=== PATIENT | female | born 1995 | race Caucasian/White ===

== ENCOUNTER → 2023-01-24 15:59 | Outpatient (CLI) | payer OTHER, SELFPAY ==
--- NOTE | 2023-01-24 16:01 | DI.US.S_ITS ---
PROCEDURE: US OB <= 14 WEEKS FETUS INDICATIONS: DATES OUTSIDE/PRIOR DATING DATA: Last menstrual period (LMP): 11/07/2022. LMP-based estimated date of delivery (NEVAEH): 08/14/2023. First dating scan (date and location): 01/24/2023. Estimated date of delivery (NEVAEH) from first dating scan: 08/12/2023. TECHNIQUE: Real-time scanning was performed of the fetus and maternal pelvic organs, with image documentation. Endovaginal scanning was also performed to better visualize the fetus and maternal ovaries. COMPARISON: None. FINDINGS: Embryo: Bylas-rump length 4.7 cm corresponds with an 11 week 3 day gestation. Heart rate: 168 beats per minute Maternal organs: Ovaries unremarkable. IMPRESSION: Single live intrauterine corresponds with an 11 week 3 day gestation. Approved by: Darnell Fregoso M.D. on 01/24/2023 at 18:38
== END ==
PROVIDERS: PCP Student in an Organized Health Care Education/Training Program; Referring Provider Family Medicine; Visit Provider Family Medicine
DX: Z34.01 Encounter for supervision of normal first pregnancy, first trimester (principal); Z3A.11 11 weeks gestation of pregnancy
CPT/HCPCS: 76801; 76817

== ENCOUNTER → 2023-02-10 10:24 | Outpatient (CLI) | payer OTHER, SELFPAY ==
[2023-02-10 10:49] LABS: Specimen Label NATERA TEST KIT.
[2023-02-10 11:41] LABS: Appearance Urine UA CLEAR; Bilirubin Urine UA NEGATIVE (NEGATIVE); Color Urine UA YELLOW; Glucose Urine UA NEGATIVE (Negative); Ketones Urine UA NEGATIVE (NEGATIVE); Leukocyte Esterase Urine UA NEGATIVE (NEGATIVE); Nitrite Urine UA NEGATIVE (Negative); Occult Blood Urine UA NEGATIVE (Negative); Protein Urine UA NEGATIVE (Negative); Urobilinogen Urine UA 0.2 E.U./dL (0.2)
[2023-02-10 11:50] LABS: Add Manual Diff / Slide Review NO; Basophils Absolute Auto 0 /uL (0-100); Basophils Percent Auto 0.3 % (0-2); Eosinophils Absolute Auto 100 /uL (0-450); Eosinophils Percent Auto 1.8 % (2-4); Hematocrit 38.6 % (36-46); Hemoglobin 13.5 g/dL (12.0-16.0); Lymphocytes Absolute Auto 1200 /uL (1100-4500); Lymphocytes Percent Auto 16.8 % (25-40); Mean Corpuscular HGB Conc 34.9 % (30-36); Mean Corpuscular Hemoglobin 29.5 PG (26-34); Mean Corpuscular Volume 84.4 fL (80-100); Monocytes Absolute Auto 400 /uL (0-900); Monocytes Percent Auto 6.2 % (3-14); Neutrophils Absolute Auto 5400 /uL (1500-7000); Neutrophils Percent Auto 74.9 % (50-75); Platelet Count 204 X10^3/uL (150-400); Red Blood Cell Count 4.58 X10^6/uL (4.0-5.2); White Blood Cell Count 7.1 X10^3/uL (4.5-11.0)
[2023-02-10 11:58] LABS: pH Urine UA 6.5 (4.5-8.0)
[2023-02-10 16:19] LABS: HIV 1 & 2 Ab/Ag 4th Gen Combo NEGATIVE (NEGATIVE); Hep C Virus Ab w/Reflex Quant NEGATIVE s/c (NEGATIVE); Hepatitis B Surface Antigen NEGATIVE s/c (NEGATIVE); Rubella Antibody IgG 25.9 IU/mL (>15)
[2023-02-11 07:12] LABS: RPR Screen Non Reactive (Non Reactive)
[2023-02-11 09:42] LABS: Varicella IgG Antibody 490 index (Immune >165)
== END ==
PROVIDERS: PCP Student in an Organized Health Care Education/Training Program; Referring Provider Student in an Organized Health Care Education/Training Program; Visit Provider Student in an Organized Health Care Education/Training Program
DX: Z34.01 Encounter for supervision of normal first pregnancy, first trimester (principal)
CPT/HCPCS: 36415; 80055; 81003; 86787; 86803; 86850; 86900; 86901; 87077; 87086; 87186; 87389

== ENCOUNTER → 2023-07-22 11:24 | Outpatient (CLI) | payer OTHER, SELFPAY ==
[2023-07-22 12:59] LABS: Add Manual Diff / Slide Review NO; Basophils Absolute Auto 0 /uL (0-100); Basophils Percent Auto 0.5 % (0-2); Eosinophils Absolute Auto 100 /uL (0-450); Eosinophils Percent Auto 1.9 % (2-4); Hematocrit 38.5 % (36-46); Hemoglobin 13.3 g/dL (12.0-16.0); Lymphocytes Absolute Auto 900 /uL (1100-4500); Lymphocytes Percent Auto 12.3 % (25-40); Mean Corpuscular HGB Conc 34.5 % (30-36); Mean Corpuscular Hemoglobin 29.5 PG (26-34); Mean Corpuscular Volume 85.5 fL (80-100); Monocytes Absolute Auto 600 /uL (0-900); Monocytes Percent Auto 7.7 % (3-14); Neutrophils Absolute Auto 5600 /uL (1500-7000); Neutrophils Percent Auto 77.6 % (50-75); Platelet Count 182 X10^3/uL (150-400); Red Blood Cell Count 4.51 X10^6/uL (4.0-5.2); Red Cell Distribution Width 14.8 % (11.6-14.8); White Blood Cell Count 7.2 X10^3/uL (4.5-11.0)
[2023-07-22 13:30] LABS: Alanine Aminotransferase 27 IU/L (<35); Albumin 3.7 g/dL (3.5-5.0); Albumin Globulin Ratio 1.2 (1.0-2.8); Alkaline Phosphatase 206 U/L (38-126); Aspartate Aminotransferase 25 IU/L (14-36); BUN Creatinine Ratio 21.3 (6-22); Bilirubin Total 0.5 mg/dL (0.2-1.3); Blood Urea Nitrogen 13 mg/dL (7-17); Calcium 9.3 mg/dL (8.4-10.2); Carbon Dioxide 20 mmol/L (22-32); Chloride 110 mmol/L (98-107); Estimated Glomerular Filt Rate > 60 mL/min (>60); Globulin 3.2 g/dL (1.7-4.1); Glucose 80 mg/dL (70-100); HEMOLYSIS < 15 (0-50); Sodium 136 mmol/L (137-145); Total Protein 6.9 g/dL (6.3-8.2)
[2023-07-22 14:06] LABS: Creatinine Urine Random 89.2 mg/dL; Protein (Total) Urine Random 11 mg/dL (0-12); Protein Creatinine Ratio Urine 0.12 GRAM/24H
[2023-07-23 16:19] LABS: Strep Grp B PCR NEG for Grp B Strep
== END ==
PROVIDERS: PCP Family Medicine; Referring Provider Family Medicine; Visit Provider Family Medicine
DX: Z34.01 Encounter for supervision of normal first pregnancy, first trimester (principal); R03.0 Elevated blood-pressure reading, without diagnosis of hypertension
CPT/HCPCS: 36415; 80053; 82570; 84156; 85025; 87653

== ENCOUNTER 2023-07-24 15:49 | Observation (INO) | payer OTHER, SELFPAY ==
[2023-07-24 16:50] LABS: Creatinine Urine Random 34.6 mg/dL; Protein (Total) Urine Random 15 mg/dL (0-12); Protein Creatinine Ratio Urine 0.43 GRAM/24H
[2023-07-24 17:03] LABS: Uric Acid 5.9 mg/dL (2.5-6.2)
[2023-07-24 17:05] LABS: Alanine Aminotransferase 27 IU/L (<35); Albumin 3.6 g/dL (3.5-5.0); Albumin Globulin Ratio 1.1 (1.0-2.8); Alkaline Phosphatase 210 U/L (38-126); Aspartate Aminotransferase 27 IU/L (14-36); BUN Creatinine Ratio 19.3 (6-22); Bilirubin Total 0.5 mg/dL (0.2-1.3); Blood Urea Nitrogen 11 mg/dL (7-17); Carbon Dioxide 18 mmol/L (22-32); Chloride 112 mmol/L (98-107); Estimated Glomerular Filt Rate > 60 mL/min (>60); Globulin 3.2 g/dL (1.7-4.1); Glucose 90 mg/dL (70-100); HEMOLYSIS < 15 (0-50); Sodium 136 mmol/L (137-145); Total Protein 6.8 g/dL (6.3-8.2)
[2023-07-24] MEDS: LACTATED RINGERS 1,000 ML 500 ML IV (17:15)
[2023-07-24 17:20] LABS: Add Manual Diff / Slide Review NO; Basophils Absolute Auto 0 /uL (0-100); Basophils Percent Auto 0.3 % (0-2); Eosinophils Absolute Auto 100 /uL (0-450); Eosinophils Percent Auto 1.3 % (2-4); Hematocrit 37.7 % (36-46); Hemoglobin 13.1 g/dL (12.0-16.0); Lymphocytes Absolute Auto 1100 /uL (1100-4500); Lymphocytes Percent Auto 13.3 % (25-40); Mean Corpuscular HGB Conc 34.7 % (30-36); Mean Corpuscular Volume 83.7 fL (80-100); Monocytes Absolute Auto 800 /uL (0-900); Neutrophils Absolute Auto 6400 /uL (1500-7000); Neutrophils Percent Auto 76.1 % (50-75); Platelet Count 189 X10^3/uL (150-400); Red Cell Distribution Width 14.5 % (11.6-14.8); White Blood Cell Count 8.4 X10^3/uL (4.5-11.0)
[2023-07-24] MEDS: ACETAMINOPHEN 325 MG TABLET 650 MG PO (18:28)
--- NOTE | 2023-07-24 20:50 | P.HPOB_ITS ---
OB HPI Date/Time Date of admission: 07/24/23 Date Patient Seen: 07/24/23 Time Patient Seen: 19:50 History of Present Condition Chief complaint: HBP, swelling in feet and ankles : 1 Para: 0 Estimated Date of Delivery: 08/14/23 Estimated Gestational Age (weeks): 37w0d Narrative: Mary Calles is a 27 year old at 37wks GA who presents for leg swelling, high BPs and RUQ pain. She noticed leg swelling yesterday. She started checking blood pressures and had highest BP at home of 149/98. She was averaging in the high 130s systolic. SHe also noticed some tightening in her abdomen. Per RN on arrival, contractions were palpable and occuring every 2-8 minutes. After a 500cc IVF bolus, contractions had spaced out to q6-8 minutes. She was given Tylenol and RUQ pain resolved. has been complicated by GDMA1, well controlled with fasting sugars in the 70-80 range and 2hr PP generally in 100-120 with occasional 130s. Infant is currently breech, persistent from last US 2 days ago. Pt had a planned ECV for this week Indications Other reason(s) for admission: observation for 24 hour urine protein due to elevated BP and elevated Urine PC History of Present care: good care Dating criteria: LMP confirmed by 1st trimester US Ultrasounds: normal 1st trimester US and normal mid trimester US Obstetrical complications: gestational diabetes (GDMA1, well controlled ) and preeclampsia Preadmission Labs Blood type: A (+) positive -: Antibody screen: negative, GBS status: negative, HBsAG: negative, HIV: negative, HSV 1: negative, HSV 2: negative and RPR/VDLR: negative -: Rubella: immune and Varicella: immune HCT: 13.1 HCAB: negative Cell-free DNA: normal cfDNA, female 1 hr GTT: 200 3 hr GTT: 3 hr Fasting blood glucose: 90 Prior (ies) History: Evaluation Evaluation Baseline heart rate: 130 Variability: Moderate (11-25) monitor accelerations: Present Monitor Decelerations: Absent Contraction Frequency (minutes): 8 Uterine Contraction Intensity: Moderate Category of Tracing: Reactive Status: Category l Dilation (cm): 1 Effacement (%): 40 Dilation: 1-2 cm Effacement: 40-50% station: -3 Position of cervix: mid Consistency: soft Moser score: 5 PFSH Surgical History History of appendectomy History of cholecystectomy [place] teeth extracted Family History Mother Hypertension Father Hypertension Grandfather Pancreatic cancer Social History marital status: number of children: 0 household members: spouse lives independently: Yes caregiver/support person: No housing: condominium pets and animals: Yes (2 cats, managing litter boxes) education level: college (bachelor's degree) occupational status: employed (works from home) current occupational exposures/hazards: No special vaibhav needs: No travel history: recent (Domestic only) seatbelt use: always water heater temp set < 120 deg: Yes working smoke detector in home: Yes fire extinguisher in home: Yes carbon monox detector in home: Yes firearms in home: Yes firearms unloaded and locked: Yes do you feel safe at home: Yes Smoking Status: Never smoker second hand exposure: No alcohol intake: former (~3/week when not ) substance use type: does not use during the past year weight has: remained stable well-balanced diet: about half the time daily servings fruits/ve-4 caffeine: Yes (1 cup coffee in AM) Type(s) of exercise: walking and weight lifting frequency: 5-6 times per week Meds Home Medications and Allergies Home Medications Medication Instructions Recorded Confirmed Type vitamin-ferrous sulfate tab PO 01/20/23 07/22/23 History 27 mg iron-folic acid 0.8 mg tablet famotidine 20 mg tablet (Pepcid) 20 mg PO DAILY #60 tabs 03/11/23 07/22/23 Rx ondansetron 4 mg disintegrating 4 mg PO Q8H PRN nausea and 03/11/23 07/22/23 Rx tablet vomiting #30 tabs buspirone 5 mg tablet 5 mg PO BID #60 tabs 07/22/23 07/22/23 Rx lidocaine 5 % topical cream 1 applic topical BID PRN pain #15 07/22/23 07/22/23 Rx (Hemorrhoidal Relief) grams Allergies Allergy/AdvReac Type Severity Reaction Status Date / Time No Known Drug Allergies Allergy Verified 07/22/23 10:34 Review of Systems Review of Systems Narrative: Denies vision changes Denies YATES Endorsees RUQ pain, improved with tylenol tx Endorses uterine contractions OB Exam Vital signs Blood Pressure: 124/83 Pulse Rate: 78 HENMT Head: normocephalic Mouth: oral mucosae normal Resp Effort & Inspection: normal respiratory effort Extremities Lower extremity: Yes edema External Female Exam: Yes normal external appearance Objective Imaging US - abdomen: My impression: heart rate visualized, ~130BPM. Movement visualized. head at RUQ, curved medially, spine up. Placenta anterior/fundal Labs 07/24/23 16:30 07/24/23 16:30 Labs: Laboratory Results - last 24 hr 07/24/23 07/24/23 16:10 16:30 WBC 8.4 RBC 4.50 Hgb 13.1 Hct 37.7 MCV 83.7 MCH 29.0 MCHC 34.7 RDW 14.5 Plt Count 189 Neut % (Auto) 76.1 H Lymph % (Auto) 13.3 L [place] % (Auto) 9.0 Eos % (Auto) 1.3 L Baso % (Auto) 0.3 Neut # (Auto) 6400 Lymph # (Auto) 1100 [place] # (Auto) 800 Eos # (Auto) 100 Baso # (Auto) 0 Sodium 136 L Potassium 4.0 Chloride 112 H Carbon Dioxide 18 L BUN 11 Creatinine 0.57 Estimated GFR > 60 BUN/Creatinine Ratio 19.3 Glucose 90 Uric Acid 5.9 Calcium 9.0 Total Bilirubin 0.5 AST 27 ALT 27 Alkaline Phosphatase 210 H Total Protein 6.8 Albumin 3.6 Globulin 3.2 Albumin/Globulin Ratio 1.1 U Random Total Protein 15 H Urine Creatinine 34.6 Protein/Creatinin Ratio 0.43 Blood Type A Positive Antibody Screen Negative Assessment and Plan Assessment and Plan Assessment and Plan narrative: 27 yo at 37w GA by 1st trimester US with pregnacy complicated by GDMA1 + breech presentation presenting for leg swelling and elevated BPS at home. On arrival, CMP is normal wtih nml LFTs, and normal Cr. CBC shows normal plts. Urine PC is 0.43 up from 0.12 two days ago in clinic. At at that visit BP was elevated to 130s but resolved after sitting for 15 minutes down to systolic of 120. The remainder of PRe-E labs were normal at that time as well 1. Elevated urine PC ratio: Concern for Pre-E. Urine PC increased PC from two days ago. BPs elevated at home but 120-130s/80s in triage. all other labs nml. No severe features now, RUQ pain resolved with tylenol and LFTs normal. Will admit to observation for 24 hour urine Protein collection and monitoring - admit to obs - 24 hours protein - trend BPs, IV labetolol for any severe range BPs - Delivery planning pending 24 hours urine and overnight BPs as well as ECV as below 2. Breech presentation: breech confirmed again today on bedside US. Wasplanned for ECV in 3 days, will move forward to tomorrow AM when OR staff present and OR available - Fentanyl + terb for ECV - NPO at midnight - Alert OR scheduling first this in the AM to ensure scheduling availability of OR if needed - Repeat US prior to ECV - plan for 1 hr monitoring prior to ECV attempt 3. GDMA1: delivery previously planned for 39.0-39.6, delivery now TBD based on BP. - glucose checks fasting and 2hr PP
[2023-07-24 21:05] VITALS: BP 138/92
[2023-07-24 21:29] VITALS: BP 124/83; PULSE 78
[2023-07-24] MEDS: ZOLPIDEM 5 MG TABLET 10 MG PO (22:05)
[2023-07-25] MEDS: CALCIUM CARBONATE 500 MG TAB PO (02:38)
[2023-07-25] MEDS: FAMOTIDINE 20 MG/2 ML VIAL IV (03:55)
[2023-07-25] MEDS: ONDANSETRON 4 MG/2 ML INJ IV (07:20)
[2023-07-25] MEDS: TERBUTALINE 1 MG/ML VIAL 0.25 MG SUBCUT (07:20)
[2023-07-25] MEDS: fentaNYL 100 MCG/2 ML INJ IV (07:23)
[2023-07-25] MEDS: LACTATED RINGERS 1,000 ML 500 ML IV (07:42)
--- NOTE | 2023-07-25 08:35 | PM.PROC.1 ---
Procedures Date/Time Date of procedure: 07/25/23 Time of procedure: 07:20 General Procedure description: Surgeon:?Terri Financial Sales Representative(s): Roxie PreOp Dx:?Breech presentation PostOp Dx:?breech presentation, unsuccessful version Operation:?External Cephalic Version Findings:?Stable HR pre and post procedure, baseline 130s, +accels, - decels Clinical Note:? a 27 year old at 37w1d who presented to L&D for leg swelling and was observed overnight. Her past medical history is insignificant. Her current has been complicated by GDMA1 and persistent breech presentation. Due to admssion for observation, ECV was attempted today. [] Today she is currently 35 weeks and 3 days gestational age. A reactive heart tracing was obtained prior to moving her to the ultrasound suite for the procedure. Risks of ECV, including abnormal FHR, PROM, abruption, injury to fetus, possible emergency C/S, and failed ECV were discussed with the patient. Procedure Note:?A bedside ultrasound was performed which confirmed the single intrauterine and a complete footling breech presentation. There was noted to be adequate fluid (MVP 7.62cm). NST was reactive and Cat 1. The pelvis was located in the maternal lower pelvis, spine along the materal left side, and head in the maternal RUQ. Using manual pressure, the fetus was manipulated with gentle pressure from the palms against the buttock and posterior occupit to stimulate a forward roll. In total, 3 attempts where made. HRs were obtained between each attempt and were reassuring, between 130-140 after each attempt. Following the procedure, she was noted to have a reassuring and reactive tracing for 1 hour post procedure. She did not have any regular contractions and there were no signs of PROM. She was discharged home with instructions on reasons to return to L&D. She is scheduled to f/up tomorrow on LD for NST. Complications: none
--- NOTE | 2023-07-25 18:20 | PM.DS.1 ---
History of Present Illness History of Present Illness Date Patient Seen: 07/25/23 Time Patient Seen: 07:45 Date of Onset of Symptoms: 07/16/23 Chief complaint: HBP, swelling in feet and ankles Discharge Providers Provider Date of admission: 07/24/23 15:49 Discharge Date: 07/25/23 Primary care physician: Paula Murray MD Discharge provider: Paula Murray MD Summary Hospital Course Hospital Course: 27-year-old at 37w0d presenting with leg swelling and elevated blood pressures into the 140 range systolics at home. She on arrival was found to have normal blood pressures but due to elevated pressures at home, preeclampsia workup was initiated which showed increase of urine protein to creatinine ratio from 0.1 -->0.43. She remained inpatient for observation overnight to ensure that blood pressures did not worsen and for monitoring. In the morning due to breech presentation, ECV was attempted. ECV was unsuccessful, see procedure note for details. After the procedure, she was monitored for 1 hour with category 1 reassuring strip. She was discharged home with plan to follow-up tomorrow for NST and blood pressure check. She will be seen in clinic on Tuesday for blood pressure check and visit. She will seen on for NST. She was seen on Tuesday for blood pressure check in clinic as well. Status at Discharge Cognitive/behavioral status at discharge: oriented Functional status at discharge: independent ambulation Overall status at discharge: patient is back to baseline Time Spent with Patient Time spent: Greater than 30 minutes Exam Narrative Exam Narrative: GEN: Healthy appearing, well-developed, NAD. PSYCH: Good Judgment. AOx3. Normal memory, mood, and affect HEENT: -Head: NC/AT -Eyes: No discharge or redness CV: warm and well perfused LUNGS: breathing comfortably on RA SKIN: Warm, well perfused. No skin rashes or abnormal lesions ABD: Gravid NEURO: Ambulating with no limitations. No focal deficits Objective Labs 07/24/23 16:30 07/24/23 16:30 COUNTS INCLUDE 234 BEDS AT THE [facility] Surgical History History of appendectomy History of cholecystectomy [place] teeth extracted Family History Mother Hypertension Father Hypertension Grandfather Pancreatic cancer Social History marital status: number of children: 0 household members: spouse lives independently: Yes caregiver/support person: No housing: condominium pets and animals: Yes (2 cats, managing litter boxes) education level: college (bachelor's degree) occupational status: employed (works from home) current occupational exposures/hazards: No special vaibhav needs: No travel history: recent (Domestic only) seatbelt use: always water heater temp set < 120 deg: Yes working smoke detector in home: Yes fire extinguisher in home: Yes carbon monox detector in home: Yes firearms in home: Yes firearms unloaded and locked: Yes do you feel safe at home: Yes Smoking Status: Never smoker second hand exposure: No alcohol intake: former (~3/week when not ) substance use type: does not use during the past year weight has: remained stable well-balanced diet: about half the time daily servings fruits/ve-4 caffeine: Yes (1 cup coffee in AM) Type(s) of exercise: walking and weight lifting frequency: 5-6 times per week Discharge Assessment & Plan Assessment and Plan Assessment: 27-year-old at 37 weeks 1 day today discharged after an overnight admission due to blood pressure elevation at home and increase in urine protein creatinine ratio. Blood pressures remained stable during her admission. ECV was attempted and was not successful. She will we monitored for blood pressure elevation mostly over the next few days and we will plan for accordingly. If she does not progress to full preeclampsia with elevated blood pressures, we will plan for at 39 weeks for GDM A1 1. Breech presentation-attempted ECV, unsuccessful. Plan for primary as delivery method 2. Elevated urine protein creatinine ratio in the absence of recorded blood pressure elevation: Blood pressures do appear to be up trending but have not reached a treatment threshold and are not yet above 140 measured in clinic or on labor and delivery. We will continue to watch blood pressures closely. -follow-up daily for blood pressure check, NST every other day, clinic visits on in between days 3. GDM A1: Diet controlled. Continue to check fasting and 2 hour postprandial sugars 4. Anxiety: Continue home BuSpar Discharge Plan Discharge Plan Patient Disposition: Home Discharge orders & Medications Prescriptions: Continued famotidine [Pepcid] 20 mg tablet 20 mg PO DAILY Qty: 60 3RF ondansetron 4 mg tablet,disintegrating 4 mg PO Q8H PRN (Reason: nausea and vomiting) Qty: 30 0RF lidocaine [Hemorrhoidal Relief] 5 % cream 1 applic topical BID PRN (Reason: pain) Qty: 15 0RF buspirone 5 mg tablet 5 mg PO BID Qty: 60 0RF vit-ferrous sulfat-FA 27 mg iron- 0.8 mg tablet PO Follow up/Referrals: Paula Murray MD [Primary Care Provider] - Visit Report/Discharge Packet Stand Alone Forms: Patient Portal/API, Stroke Signs & Symptoms Discharge Data Primary Care Provider: Paula Murray Attending Provider: Jacoby Merlos Admit Date/Time: 07/24/23 15:49 Discharges patient from system. Discharge Date/Time: 07/25/23 08:47
[2023-07-25 21:48] LABS: Collection Time Urine 24 Hours; Protein (Total) Urine Random 11 mg/dL (0-12); Total Protein 24 Hour Urine 212 mg/day (42-225); Total Volume Urine 1925 mL
== END 2023-07-25 08:47 | disposition home or self-care (01) ==
PROVIDERS: Admitting Provider Obstetrics & Gynecology; PCP Family Medicine; Referring Provider Obstetrics & Gynecology; Visit Provider Obstetrics & Gynecology
DX: O32.1XX0 Maternal care for breech presentation, not applicable or unspecified (principal); O24.410 Gestational diabetes mellitus in pregnancy, diet controlled; O99.343 Other mental disorders complicating pregnancy, third trimester; F41.9 Anxiety disorder, unspecified; O12.13 Gestational proteinuria, third trimester; Z3A.37 37 weeks gestation of pregnancy; O26.893 Other specified pregnancy related conditions, third trimester; R11.2 Nausea with vomiting, unspecified; R10.13 Epigastric pain; R51.9 Headache, unspecified; O24.419 Gestational diabetes mellitus in pregnancy, unspecified control; O13.3 Gestational [pregnancy-induced] hypertension without significant proteinuria, third trimester
CPT/HCPCS: 36415; 59025; 59050; 59412; 76815; 80053; 82570; 84156; 84550; 85025; 86850; 86900; 86901; 96360; 96372; G0378; G0379; J2405; J3010

== ENCOUNTER 2023-07-25 20:00 | Observation (INO) | payer OTHER, SELFPAY ==
[2023-07-25 21:02] LABS: Add Manual Diff / Slide Review NO; Basophils Absolute Auto 0 /uL (0-100); Basophils Percent Auto 0.5 % (0-2); Eosinophils Absolute Auto 0 /uL (0-450); Eosinophils Percent Auto 0.1 % (2-4); Hematocrit 36.1 % (36-46); Hemoglobin 12.5 g/dL (12.0-16.0); Lymphocytes Absolute Auto 1000 /uL (1100-4500); Lymphocytes Percent Auto 11.2 % (25-40); Mean Corpuscular HGB Conc 34.5 % (30-36); Mean Corpuscular Hemoglobin 28.8 PG (26-34); Mean Corpuscular Volume 83.4 fL (80-100); Monocytes Absolute Auto 800 /uL (0-900); Monocytes Percent Auto 8.9 % (3-14); Neutrophils Absolute Auto 6900 /uL (1500-7000); Neutrophils Percent Auto 79.3 % (50-75); Platelet Count 181 X10^3/uL (150-400); Red Blood Cell Count 4.33 X10^6/uL (4.0-5.2); Red Cell Distribution Width 14.3 % (11.6-14.8); White Blood Cell Count 8.7 X10^3/uL (4.5-11.0)
[2023-07-25 21:07] LABS: Alanine Aminotransferase 26 IU/L (<35); Albumin 3.5 g/dL (3.5-5.0); Albumin Globulin Ratio 1.1 (1.0-2.8); Alkaline Phosphatase 210 U/L (38-126); Aspartate Aminotransferase 26 IU/L (14-36); BUN Creatinine Ratio 18.5 (6-22); Bilirubin Total 0.6 mg/dL (0.2-1.3); Blood Urea Nitrogen 10 mg/dL (7-17); Calcium 9.7 mg/dL (8.4-10.2); Carbon Dioxide 22 mmol/L (22-32); Chloride 109 mmol/L (98-107); Estimated Glomerular Filt Rate > 60 mL/min (>60); Globulin 3.1 g/dL (1.7-4.1); Glucose 92 mg/dL (70-100); HEMOLYSIS < 15 (0-50); Potassium 4.1 mmol/L (3.4-5.1); Sodium 136 mmol/L (137-145); Total Protein 6.6 g/dL (6.3-8.2)
[2023-07-25] MEDS: ONDANSETRON 4 MG ODT SL (21:47)
== END 2023-07-25 22:15 | disposition home or self-care (01) ==
PROVIDERS: Admitting Provider Family Medicine; PCP Family Medicine; Referring Provider Family Medicine; Visit Provider Family Medicine
DX: O26.893 Other specified pregnancy related conditions, third trimester (principal); R11.2 Nausea with vomiting, unspecified; R10.13 Epigastric pain; R51.9 Headache, unspecified; O24.419 Gestational diabetes mellitus in pregnancy, unspecified control; O13.3 Gestational [pregnancy-induced] hypertension without significant proteinuria, third trimester; Z3A.37 37 weeks gestation of pregnancy
CPT/HCPCS: 59025; 59050; 59412; 76815; 80053; 85025; 96360; 96372; G0378; G0379; J2405; J3010

== ENCOUNTER 2023-07-26 09:56 | Outpatient (CLI) | payer OTHER, SELFPAY ==
--- NOTE | 2023-07-26 10:29 | P.TNLD_ITS ---
Visit Information Visit Information Date of evaluation: 07/26/23 Primary OB Provider: Paula Murray On-call OB Provider: Tamela Gomez Comments/Additional reasons for admission: Pt is a 27yo at 37w2d here for NST for concerns for pre-eclampsia. Pt was hospitalized overnight 07/23-07/24 due to elevated BPs at home. Pr/Cr was elevated at that time, however BPs in the hospital remained in normal range. She was discharged home. Since being at home, the pt reports that her BPs have been in acceptable range. [facility] Surgical History History of appendectomy History of cholecystectomy [place] teeth extracted Family History Mother Hypertension Father Hypertension Grandfather Pancreatic cancer Social History marital status: number of children: 0 household members: spouse lives independently: Yes caregiver/support person: No housing: condominium pets and animals: Yes (2 cats, managing litter boxes) education level: college (bachelor's degree) occupational status: employed (works from home) current occupational exposures/hazards: No special vaibhav needs: No travel history: recent (Domestic only) seatbelt use: always water heater temp set < 120 deg: Yes working smoke detector in home: Yes fire extinguisher in home: Yes carbon monox detector in home: Yes firearms in home: Yes firearms unloaded and locked: Yes do you feel safe at home: Yes Smoking Status: Never smoker second hand exposure: No alcohol intake: former (~3/week when not ) substance use type: does not use during the past year weight has: remained stable well-balanced diet: about half the time daily servings fruits/ve-4 caffeine: Yes (1 cup coffee in AM) Type(s) of exercise: walking and weight lifting frequency: 5-6 times per week Evaluation Evaluation Baseline heart rate: 140 Variability: Moderate (11-25) monitor accelerations: Present Monitor Decelerations: Absent Category of Tracing: Reactive Diagnosis, Plan/Disposition Final Diagnosis (1) Elevated blood pressure affecting in third trimester, antepartum: Status: Acute Plan/Disposition Plan: Pt is a 27yo at 37w2d here for NST for concerns for pre-eclampsia. BP normal range today, 24hr urine protein returned normal yesterday. Would not diagnose with pre-eclampsia at this point. Pt can continue monitoring BPs at home. NST reactive. Has f/u appt scheduled for tomorrow. Stable for d/c home. OB Disposition: home
== END 2023-07-26 10:36 | disposition home or self-care (01) ==
LOC: OB 08-02 09:43
PROVIDERS: PCP Family Medicine; Referring Provider Family Medicine; Visit Provider Family Medicine
DX: O26.893 Other specified pregnancy related conditions, third trimester (principal); R03.0 Elevated blood-pressure reading, without diagnosis of hypertension; Z3A.37 37 weeks gestation of pregnancy
CPT/HCPCS: 59025; G0378; G0379

== ENCOUNTER 2023-07-28 09:43 | Inpatient (IN) | payer OTHER, SELFPAY ==
[2023-07-28 10:46] LABS: Add Manual Diff / Slide Review NO; Basophils Absolute Auto 0 /uL (0-100); Basophils Percent Auto 0.4 % (0-2); Eosinophils Absolute Auto 100 /uL (0-450); Eosinophils Percent Auto 1.5 % (2-4); Hematocrit 38.1 % (36-46); Hemoglobin 13.2 g/dL (12.0-16.0); Lymphocytes Absolute Auto 900 /uL (1100-4500); Lymphocytes Percent Auto 11.5 % (25-40); Mean Corpuscular HGB Conc 34.6 % (30-36); Mean Corpuscular Hemoglobin 29.1 PG (26-34); Mean Corpuscular Volume 84.3 fL (80-100); Monocytes Absolute Auto 600 /uL (0-900); Monocytes Percent Auto 8.7 % (3-14); Neutrophils Absolute Auto 5800 /uL (1500-7000); Neutrophils Percent Auto 77.9 % (50-75); Platelet Count 166 X10^3/uL (150-400); Red Blood Cell Count 4.52 X10^6/uL (4.0-5.2); Red Cell Distribution Width 14.5 % (11.6-14.8); White Blood Cell Count 7.4 X10^3/uL (4.5-11.0)
[2023-07-28 10:58] LABS: Alanine Aminotransferase 27 IU/L (<35); Albumin 3.3 g/dL (3.5-5.0); Alkaline Phosphatase 202 U/L (38-126); Aspartate Aminotransferase 28 IU/L (14-36); BUN Creatinine Ratio 22.2 (6-22); Bilirubin Total 0.6 mg/dL (0.2-1.3); Blood Urea Nitrogen 14 mg/dL (7-17); Calcium 9.3 mg/dL (8.4-10.2); Carbon Dioxide 21 mmol/L (22-32); Chloride 108 mmol/L (98-107); Estimated Glomerular Filt Rate > 60 mL/min (>60); Globulin 3.3 g/dL (1.7-4.1); Glucose 105 mg/dL (70-100); HEMOLYSIS < 15 (0-50); Potassium 4.4 mmol/L (3.4-5.1); Sodium 135 mmol/L (137-145); Total Protein 6.6 g/dL (6.3-8.2)
[2023-07-28 11:41] LABS: Creatinine Urine Random 40.7 mg/dL; Protein (Total) Urine Random 13 mg/dL (0-12); Protein Creatinine Ratio Urine 0.31 GRAM/24H
[2023-07-28 13:59] VITALS: BP 135/84
--- NOTE | 2023-07-28 16:23 | P.HPOB_ITS ---
OB HPI Date/Time Date of admission: 07/28/23 Date Patient Seen: 07/28/23 Time Patient Seen: 12:45 History of Present Condition Chief complaint: NST : 1 Para: 0 Estimated Date of Delivery: 08/12/23 Estimated Gestational Age (weeks): 37w5d Narrative: Mary Calles is a 27 year old at 37w5d presenting for scheduled NST. SHe was found to have elevated blood pressures on arrival. Bps were non-sustained but were consistently elevated. She had Pre-E labs that showed elevated urine PC. Due to dx of Pre-E and GA >37wks, decision made to move to CS. position was previously noted to breech and was confirmed on the day of admission. was also complicated by GDMA1. Decision made to move to CS. History of Present care: good care Dating criteria: LMP confirmed by 1st trimester US Ultrasounds: normal 1st trimester US and normal mid trimester US Obstetrical complications: gestational diabetes and preeclampsia Preadmission Labs Blood type: A (+) positive -: Antibody screen: negative, GBS status: negative, HBsAG: negative, HIV: negative, HSV 1: unknown, HSV 2: unknown and RPR/VDLR: negative -: Rubella: immune and Varicella: immune HCT: 13.2 HCAB: negative Cell-free DNA: low risk female 1 hr GTT: 200 3 hr GTT: 3 hr PFSH Surgical History (Reviewed 02/10/23 @ 09:50 by Luma Verdin [facility]) History of appendectomy History of cholecystectomy [place] teeth extracted Family History (Reviewed 02/10/23 @ 09:50 by Luma Verdin [facility]) Mother Hypertension Father Hypertension Grandfather Pancreatic cancer Social History marital status: number of children: 0 household members: spouse lives independently: Yes caregiver/support person: No housing: condominium pets and animals: Yes (2 cats, managing litter boxes) education level: college (bachelor's degree) occupational status: employed (works from home) current occupational exposures/hazards: No special vaibhav needs: No travel history: recent (Domestic only) seatbelt use: always water heater temp set < 120 deg: Yes working smoke detector in home: Yes fire extinguisher in home: Yes carbon monox detector in home: Yes firearms in home: Yes firearms unloaded and locked: Yes do you feel safe at home: Yes Smoking Status: Never smoker second hand exposure: No alcohol intake: former (~3/week when not ) substance use type: does not use during the past year weight has: remained stable well-balanced diet: about half the time daily servings fruits/ve-4 caffeine: Yes (1 cup coffee in AM) Type(s) of exercise: walking and weight lifting frequency: 5-6 times per week Meds Home Medications and Allergies Home Medications Medication Instructions Recorded Confirmed Type vitamin-ferrous sulfate tab PO 01/20/23 07/27/23 History 27 mg iron-folic acid 0.8 mg tablet famotidine 20 mg tablet (Pepcid) 20 mg PO DAILY #60 tabs 03/11/23 07/27/23 Rx ondansetron 4 mg disintegrating 4 mg PO Q8H PRN nausea and 03/11/23 07/27/23 Rx tablet vomiting #30 tabs buspirone 5 mg tablet 5 mg PO BID #60 tabs 07/22/23 07/27/23 Rx lidocaine 5 % topical cream 1 applic topical BID PRN pain #15 07/22/23 07/27/23 Rx (Hemorrhoidal Relief) grams Allergies Allergy/AdvReac Type Severity Reaction Status Date / Time No Known Drug Allergies Allergy Verified 07/27/23 08:02 OB Exam Narrative Exam Narrative: GEN: Healthy appearing, well-developed, NAD. PSYCH: Good Judgment. AOx3. Normal memory, mood, and affect HEENT: -Head: NC/AT -Eyes: No discharge or redness CV: warm and well perfused LUNGS: breathing comfortably on RA SKIN: Warm, well perfused. No skin rashes or abnormal lesions ABD: gravid abdomen, nontender, breech by leopolds NEURO: Ambulating with no limitations. No focal deficits Objective Labs 07/28/23 10:38 07/28/23 10:38 Labs: Laboratory Results - last 24 hr 07/28/23 07/28/23 07/28/23 10:38 10:45 13:50 WBC 7.4 RBC 4.52 Hgb 13.2 Hct 38.1 MCV 84.3 MCH 29.1 MCHC 34.6 RDW 14.5 Plt Count 166 Neut % (Auto) 77.9 H Lymph % (Auto) 11.5 L [place] % (Auto) 8.7 Eos % (Auto) 1.5 L Baso % (Auto) 0.4 Neut # (Auto) 5800 Lymph # (Auto) 900 L [place] # (Auto) 600 Eos # (Auto) 100 Baso # (Auto) 0 Sodium 135 L Potassium 4.4 Chloride 108 H Carbon Dioxide 21 L BUN 14 Creatinine 0.63 Estimated GFR > 60 BUN/Creatinine Ratio 22.2 H Glucose 105 H Calcium 9.3 Total Bilirubin 0.6 AST 28 ALT 27 Alkaline Phosphatase 202 H Total Protein 6.6 Albumin 3.3 L Globulin 3.3 Albumin/Globulin Ratio 1.0 U Random Total Protein 13 H Urine Creatinine 40.7 Protein/Creatinin Ratio 0.31 Blood Type A Positive Antibody Screen Negative Assessment and Plan Assessment and Plan Assessment and Plan narrative: 27 yo at 37w5d presenting for NST, found to have elevated BPs, non- sustained and not requiring Mag but consistent with dx of Pre-E. BPs resolved without antihypertensives. Urine PC was elevated. was scanned and found to be breech. Decision made to move to CS due to GA of >37 1. PreE, mild: move to delivery - trend BPs - low threshold for Mag - I/O - IV antihypertensive available for BP >160/110 - CBC with nml plts, CMp with nml LFTS 2. GDMA1- fasting glucoses well control with diet - Blood sugar controlled pre-op - No sugar checks - f/up with 6 week PP GTT for DM2 risk 3. Breech presentation: Position confirmed at bedisde today, head on maternal RUQ, spine up. Baby girl Ambar Mcbride, Blaise - delivery via CS - consent obtained - type and screen, CBC - Anceph for surgical ppx - hx of lap appy and cholecystectomy, awareness intraoperatively
[2023-07-28] MEDS: CEFAZOLIN 2 GM/100 ML PREMIX 100 ML IV (16:44)
--- NOTE | 2023-07-28 16:55 | SUR.OPER ---
Supine on Padded OR bed, head on pillow, safety belt at thigh, arms secured on padded arm boards at <90 degrees abduction. Bump under right buttock. Legs uncrossed with pillow under knees, gel pad to heels, tape over blanket to lower legs.
--- NOTE | 2023-07-28 16:58 | SUR.OPER ---
FHR: 130 pre-op. Cord blood x 2 and placenta to OB with OB Rn.
[2023-07-28] MEDS: ACETAMINOPHEN IV 1,000 MG/100 ML VIAL 400 MG IV (17:13)
[2023-07-28] MEDS: LACTATED RINGERS 1,000 ML 42 ML IV (17:20)
--- NOTE | 2023-07-28 17:26 | SUR.OPER ---
TOB live female @ 1702.
[2023-07-28 17:55] VITALS: BP 118/77; BP 84/47; PULSE 68; PULSE 69; RESP 12; RESP 16; TEMP 36.2; O2SAT 97; O2SAT 98
[2023-07-28 18:01] VITALS: BP 118/81; PULSE 61; RESP 14; TEMP 36.1; O2SAT 97
--- NOTE | 2023-07-28 18:03 | PM.OBCS.1 ---
Operative Date/Time/Diagnoses Date of procedure: 07/28/23 Pre-op diagnosis: Breech Presentation Procedure & Clinicians Procedure: Primary Low transverse Same procedure as scheduled: Yes Indications: breech presentation, delivery at 37 weeks for pre-E Surgeon: Paula Murray Acquisition Marketing Manager: Hailey Basurto Reason for Acquisition Marketing Manager: This procedure required the assistance of a skilled operating room surgical technologist for retraction and visualization Anesthesia Type: Spinal Operative Notes Findings: Viable female infant in incomplete breech presentation, double nuchal cord, nuchal arm, calcifications in placenta Closure Type: primary Specimen(s): cord blood and cord pH Intraoperative meds administered: Duramorph and Pitocin Applied: Catheter Estimated Blood Loss (mL): 700 Procedure in detail: PREOP DIAGNOSES: 37w5d SIUP Breech presentation pre-Eclampsia without severe features GDMA1 POSTOPERATIVE DIAGNOSES: S/p primary LTCS PROCEDURE: LTCS SURGEON: 1st SAUSAGE MACHINE OPERATOR: Dr. Basurto ANESTHESIA: Spinal Blood loss: 700mL FINDINGS: Viable female in incomplete breech presentation, double nuchal cord, nuchal arm, calcifications in placenta SPECIMENS/PATH: cord blood, cord gases COMPLICATIONS: None INDICATION:? Mary Calles is a 27 year old at 37w5d presenting for scheduled NST. She was found to have elevated blood pressures on arrival. Bps were were consistently elevated with occasional non-sustained severe range readings. She had Pre-E labs that showed elevated urine PC. Due to dx of Pre-E and GA >37wks, decision made to move to delivery. position was previously noted to breech and was confirmed on the day of admission. was also complicated by GDMA1. Decision made to move to CS. OPERATIVE COURSE:? The patient was taken to the operating room with IV running. She was prepared and draped in the normal sterile fashion in the dorsal supine position with a leftward tilt. Spinal anesthesia was found to be adequate. ?? A Pfannenstiel skin incision was then made with the scalpel and carried through to the underlying layer of fascia with the scalpel.??The fascia was incised in the midline and the incision extended laterally with the Gonzalez scissors. The superior aspect of the fascial incision was then grasped with the Gray clamps, elevated, and the underlying rectus muscles dissected off bluntly and sharply where needed.??Attention was then turned to the inferior aspect of the incision which, in a similar fashion, was grasped, tented up with the Gray clamps, and the rectus muscle dissected off bluntly and sharply with Gonzalez scissors. The rectus muscles were then in the midline, and the peritoneum was identified and entered bluntly. The peritoneal incision was then extended with good visualization of the bladder.?The bladder blade was then inserted.?Attention was turned to creating a bladder flap. The vesicouterine peritoneum was identified, grasped with pick-ups and entered sharply with the Metzenbaum scissors. The incision was then extended laterally and the bladder flap created digitally. A low transverse incision was made on the uterus with the scalpel. The uterine incision was then bluntly extended laterally by pulling cephalocaudal. Membranes were ruptured and fluid was clear. The bladder blade was removed. Infant was noted to be breech. Presenting part was the buttocks. One leg was delivered, then the other, then delivery completed to the hips. The was rotated with a wet blue towel and delivered to the shoulders. The arms delivered across the chest with Loveset's maneuver, and then the head gently delivered. A double nuchal cord was noted as well as a nuchal arm. The nose and mouth were suctioned with bulb suction and the cord was clamped and cut after a one minute delay..The nose and mouth were suctioned with bulb suction and the cord was clamped and cut. The infant was handed off to the waiting delivery team. APGARS were 6/7/9 at one, five and ten minutes respectively. The placenta was then delivered manually. The uterus was then cleared of all clots and debris. The uterine incision was repaired with 1 chromic in a running, locked fashion. A second layer of the same suture was used to imbricate. The fascia was reapproximated with 0 vicryl in a running fashion. Wound was irrigated. The subcutaneous tissue was reapproximated with 3-0 vicryl. The skin was closed with 4-0 monocryl. Steristrips and aquasil dressing were applied. ?? The patient tolerated the procedure well.The patient was taken to the recovery room in stable condition.? SPONGE AND NEEDLE COUNTS: Correct DRESSING: Aquasil ANTICOAGULATION: SCD's applied prior to Surgery - YES PREOP ANTIBIOTICS GIVEN: 2g Ancef DISPOSITION: The patient was taken to recovery room having tolerated procedure well. Complications: none Post-operative Condition: stable Disposition: PACU Aftercare: routine postop
[2023-07-28] MEDS: BUSPIRONE 5 MG TABLET PO (22:19)
[2023-07-28] MEDS: diphenhydrAMINE 50 MG/ML VIAL 25 MG IV (22:38)
[2023-07-29] MEDS: KETOROLAC 30 MG/ML VIAL IV ×3 (00:36→15:00)
[2023-07-29] MEDS: ACETAMINOPHEN 325 MG TABLET 650 MG PO ×4 (00:36→21:50)
[2023-07-29 01:16] VITALS: BP 134/97; PULSE 76; RESP 18; TEMP 37.3
[2023-07-29] MEDS: OXYCODONE IR 5 MG TABLET PO ×4 (05:52→21:47)
[2023-07-29 07:51] LABS: Add Manual Diff / Slide Review NO; Basophils Absolute Auto 0 /uL (0-100); Basophils Percent Auto 0.1 % (0-2); Eosinophils Absolute Auto 0 /uL (0-450); Eosinophils Percent Auto 0.1 % (2-4); Hematocrit 36.8 % (36-46); Hemoglobin 12.5 g/dL (12.0-16.0); Lymphocytes Absolute Auto 1000 /uL (1100-4500); Lymphocytes Percent Auto 7.7 % (25-40); Mean Corpuscular Hemoglobin 28.8 PG (26-34); Mean Corpuscular Volume 84.8 fL (80-100); Monocytes Absolute Auto 1100 /uL (0-900); Monocytes Percent Auto 8.2 % (3-14); Neutrophils Absolute Auto 11400 /uL (1500-7000); Neutrophils Percent Auto 83.9 % (50-75); Platelet Count 175 X10^3/uL (150-400); Red Blood Cell Count 4.34 X10^6/uL (4.0-5.2); White Blood Cell Count 13.5 X10^3/uL (4.5-11.0)
[2023-07-29] MEDS: FAMOTIDINE 20 MG TABLET PO (11:22)
[2023-07-29] MEDS: PRENATAL VIT,CALC/IRON/FOLIC 1 TABLET 1 TAB PO (11:23)
--- NOTE | 2023-07-29 13:17 | P.PNOB_ITS ---
Subjective - OB Subjective Patient comments: no complaints [place] baby status: doing well [place] feeding status: exclusively breast feeding Date Patient Seen: 07/29/23 Time Patient Seen: 13:17 Interval history: Doing well this AM, no complaints. Pain well controlled with occasional oxycodone and tylenol/toradol. Minimal vaginal bleeding. Is making lots of colostrum and breast feeding is going well. Has been able to stand and ambulate. Has voided. Passing gas. Not sure what she wants to do for control yet, will consdier and discuss at wound check next week. Exam Vital Signs (past 8 hours): Oxygen Delivery Method Room Air Narrative Exam Narrative: GEN: Healthy appearing, well-developed, NAD. PSYCH: Good Judgment. AOx3. Normal memory, mood, and affect HEENT: -Head: NC/AT -Eyes: No discharge or redness CV: warm and well perfused LUNGS: breathing comfortably on RA ABd: dressing clean and dry, fundus firm SKIN: Warm, well perfused. No skin rashes or abnormal lesions MSK: No deformities NEURO: Ambulating with no limitations. No focal deficits. nml DTR Objective Labs 07/29/23 07:00 07/28/23 10:38 Labs: Laboratory Results - last 24 hr 07/28/23 07/29/23 13:50 07:00 WBC 13.5 H D RBC 4.34 Hgb 12.5 Hct 36.8 MCV 84.8 MCH 28.8 MCHC 34.0 RDW 14.0 Plt Count 175 Neut % (Auto) 83.9 H Lymph % (Auto) 7.7 L Rolette % (Auto) 8.2 Eos % (Auto) 0.1 L Baso % (Auto) 0.1 Neut # (Auto) 37748 H Lymph # (Auto) 1000 L Rolette # (Auto) 1100 H Eos # (Auto) 0 Baso # (Auto) 0 Blood Type A Positive Antibody Screen Negative Assessment & Plan Assessment and Plan (1) Elevated blood pressure affecting in third trimester, antepartum: Status: Acute (2) GDM (gestational diabetes mellitus), class A1: Status: Acute (3) : Status: Acute Plan day: 1 plan OB: routine postop care Comments: 27 yo G1 now P1 at 37w5d admitted for Pre-E wo SF now POD 1 following uncomplicated LTCS for breech presentation. SHe is doing well, BPs well controlled without antihypertensives 1. PreE, mild: BPs well controlled, no medications needed. No Pre-E sx this AM - trend BPs - IV antihypertensive available for BP >160/110 - CBC with nml plts, CMP with nml LFTS - BP check scheduled for Tue 2. GDMA1- fasting glucoses well control with diet - No sugar checks - f/up with 6 week PP GTT for DM2 risk 3. S/p LTCS for breech presentation: - routine care - tylenol and ibuprofen for pain control, Oxycodone for breakthrough pain - Voiding without difficulty - miralax for bowel regimen - still deciding what she would like to use for control, will discuss further at wound check in 1 week - Wound check scheduled for TueAugust 02 - Breast feeding, continue vitamin - Hgb with appropriate post-surgical drop 4. Anxiety: - continue Buspirone 5mg BID D/c plan: If bps stable, plan for dc tomorrow Time Spent With Patient Time: Total time spent is greater than 50% in coordination of care (as documented) at patient's floor/unit and/or counseling patient: Time with patient: 15-24 minutes
[2023-07-29] MEDS: polyethylene glycoL 3350 17 GM POWD.PACK PO (14:11)
[2023-07-29] MEDS: IBUPROFEN 600 MG TABLET PO (21:50)
[2023-07-29] MEDS: BUSPIRONE 5 MG TABLET PO (21:51)
[2023-07-30] MEDS: OXYCODONE IR 5 MG TABLET PO (04:15)
[2023-07-30] MEDS: IBUPROFEN 600 MG TABLET PO ×2 (04:15→10:06)
[2023-07-30] MEDS: ACETAMINOPHEN 325 MG TABLET 650 MG PO ×2 (04:15→10:06)
[2023-07-30] MEDS: BUSPIRONE 5 MG TABLET PO (09:04)
[2023-07-30] MEDS: FAMOTIDINE 20 MG TABLET PO (09:04)
[2023-07-30] MEDS: PRENATAL VIT,CALC/IRON/FOLIC 1 TABLET 1 TAB PO (09:04)
--- NOTE | 2023-07-30 12:00 | PM.OBDS.1 ---
Discharge Providers Provider Date of admission: 07/28/23 09:43 Discharge Date: 07/30/23 Primary care physician: Paula Murray MD Consults: 07/28/23 17:59 Consult to Certified Flex Endoscope Reprocessor Routine Comment: Discharge provider: Hailey Faustin MD Summary Hospital Course Date Patient Seen: 07/30/23 Time Patient Seen: 12:01 Diagnoses: 37-5/7 weeks gestation GDM A1 Breech presentation Gestational hypertension Primary low-transverse section Hospital Course: Patient is a 27-year-old 1 para 1 who presented on July 28, 2023 with elevated blood pressures. Her baby was in the breech presentation. She underwent a primary low-transverse section without complication. Her course was unremarkable. She is tolerating a diet. She is passing flatus. She has voided without the catheter. Her pain is well controlled. Her bleeding is tapering. She is ambulating without assistance. Peripartum Data Delivery Method: Section Procedures: Primary low-transverse section Spinal anesthesia complications: none [place] 1: Gender: Female Disposition of : home Discharge Diagnosis (1) Elevated blood pressure affecting in third trimester, antepartum: Status: Acute (2) GDM (gestational diabetes mellitus), class A1: Status: Acute (3) : Status: Acute Status at Discharge Cognitive/behavioral status at discharge: oriented Functional status at discharge: independent ambulation Overall status at discharge: patient is progressing back to baseline Time Spent with Patient Time attestation: Total time spent providing and/or coordinating discharge services: Time spent: Less than 30 minutes Objective Labs 07/29/23 07:00 07/28/23 10:38 Exam Vital Signs (past 8 hours): Oxygen Delivery Method Room Air Narrative Exam Narrative: Generally: Patient is sitting up in bed, no acute distress Lungs: CTA bilat CV: RRR Fundus: Firm at U -1 Incision: Clean dry and intact with Aquacel dressing. There is an area measuring 3 cm x 3 cm in the lower mid bandage that has some old blood. Extremities: Trace edema, negative Homans Discharge Plan Discharge Plan Patient Disposition: Home Provider Discharge Comment: Call with fever, chills, redness or drainage around the incision, or bleeding vaginally more than a pad in an hour Call with any red streaks, warmth, or tenderness in the calves Ibuprofen 600 mg every 6 hours as needed Tylenol 650 mg every 6 hours as needed Push oral fluids Stool softener until bowel returns to normal Call with upper number of blood pressure in the 150s, or lower number in the 100s Discharge orders & Medications Prescriptions: New oxycodone 5 mg tablet 5 mg PO Q6H PRN (Reason: pain) Qty: 20 0RF Continued lidocaine [Hemorrhoidal Relief] 5 % cream 1 applic topical BID PRN (Reason: pain) Qty: 15 0RF buspirone 5 mg tablet 5 mg PO BID Qty: 60 0RF vit-ferrous sulfat-FA 27 mg iron- 0.8 mg tablet PO Discontinued famotidine [Pepcid] 20 mg tablet 20 mg PO DAILY Qty: 60 3RF ondansetron 4 mg tablet,disintegrating 4 mg PO Q8H PRN (Reason: nausea and vomiting) Qty: 30 0RF Follow up/Referrals: Paula Murray MD [Primary Care Provider] - (Incision check on 08/03/2023 @ 4:30pm 6wk post appt on 09/09/23 @ 1330pm) Diet/Activity/Treatments Diet: Regular Activity: No heavy lifting, nothing more than a gal of milk or the baby Nothing in the vagina for 6 weeks Skin/Wound/Dressing Care Report to your healthcare provider any signs of infection, such as:: chills, fever, increased pain, unusual drainage and unusual redness Dressing: Do not remove dressing Visit Report/Discharge Packet Instructions: DI for , DI for Prescription Opioid Use Stand Alone Forms: Patient Portal/API, Stroke Signs & Symptoms Discharge Data Primary Care Provider: Paula Murray
== END 2023-07-30 13:09 | disposition home or self-care (01) | DRG 788 ==
PROVIDERS: Admitting Provider Family Medicine; PCP Family Medicine; Referring Provider Family Medicine; Visit Provider Family Medicine
PROC: 10D00Z1 Extraction of Products of Conception, Low, Open Approach (ICD-10-PCS; CPT 59514; principal; 2023-07-28 15:00)
DX: O14.03 Mild to moderate pre-eclampsia, third trimester (principal); O32.8XX0 Maternal care for other malpresentation of fetus, not applicable or unspecified; Z3A.37 37 weeks gestation of pregnancy; Z37.0 Single live birth
CPT/HCPCS: 36415; 59050; 59510; 59514; 59515; 76815; 80053; 82570; 84156; 85025; 86850; 86900; 86901; A9270; G0379; J0136; J0690; J1100; J1200; J1885; J2274; J2405

== ENCOUNTER 2024-05-29 10:05 | Emergency (ER) | payer OTHER, SELFPAY ==
[2024-05-29 10:11] VITALS: BP 150/98; PULSE 110; RESP 18; TEMP 36.6; O2SAT 98; BMI 28.3
[2024-05-29 12:57] VITALS: BP 116/69; PULSE 86; RESP 18; O2SAT 96
--- NOTE | 2024-05-29 13:11 | ED_ITS ---
HPI - Allergic Reaction <Daniel Dumont PA-C - Last Filed: 05/29/24 13:20> General Chief complaint: Allergic Reaction Stated complaint: Hives all over lips are tingly . Time Seen by Provider: 05/29/24 11:21 Source: patient Mode of arrival: Ambulatory History of Present Illness HPI narrative: 28-year-old female with past medical history depression, anxiety, preeclampsia, idiopathic urticaria presents to the ED with exacerbation of the you urticaria. Patient states that last night, she had an exacerbation of hives which involved her face and lips. Patient endorses frequent bruising. She felt like her lips were little bit swollen and tingly yesterday. No tongue swelling or throat swelling or trouble breathing. No nausea, vomiting, abdominal pain. No wheezing. Patient has been taking 10 mg of Zyrtec morning and night, as well as hydroxyzine at bedtime. Patient still has breakthrough hives about 3 times a week. Patient has in appointment with an waiter/waitress room service, however they will not be able to see her until July or August. Patient has seen a administrative support technician who prescribed the above medications as well as gave her a prednisone taper. Patient states that the prednisone taper did not help at all. Patient does not have any known allergies. It is unclear what patient's triggers are for the urticaria. Patient denies any new stressors or anxiety. Related Data Home Medications Medication Instructions Recorded Confirmed azelaic acid 15 % topical gel 1 applic topical BID 08/12/23 05/17/24 Previous Rx's Medication Instructions Recorded fluoxetine 40 mg capsule 40 mg PO DAILY #90 caps 12/07/23 hydroxyzine pamoate 25 mg capsule 25 mg PO BEDTIME PRN for anxiety 04/11/24 (Vistaril) #60 caps diclofenac sodium 1 % topical gel 2 g topical QID #100 grams 05/17/24 (Voltaren Arthritis Pain) Allergies Allergy/AdvReac Type Severity Reaction Status Date / Time No Known Drug Allergies Allergy Verified 05/29/24 10:14 Review of Systems <Daniel Dumont PA-C - Last Filed: 05/29/24 13:20> Constitutional Constitutional: Denies chills, Denies fatigue, Denies fever(s), Denies frequent falls, Denies lethargy and Denies weakness Eyes Eyes: Denies change in vision, Denies eye discharge, Denies irritation and Denies loss of vision ENT Ears, Nose, Mouth, and Throat: Denies change in voice, Denies dizziness, Denies neck pain, Denies sore throat and Denies throat swelling Cardiovascular Cardiovascular: Denies chest pain, Denies irregular heart rhythm, Denies lightheadedness, Denies palpitations, Denies dyspnea, Denies dyspnea on exertion and Denies orthopnea Respiratory Respiratory: Denies cough, Denies dyspnea, Denies dyspnea on exertion and Denies wheezing Gastrointestinal Gastrointestinal: Denies abdominal pain, Denies change in bowel habits, Denies diarrhea, Denies nausea and Denies vomiting Musculoskeletal Musculoskeletal: Denies neck pain and Denies numbness Integumentary/Breasts Skin/Breast: Reports pruritus, Denies erythema, Reports rash, Reports unusual bruising and Denies wounds Comments: Hives, Neurologic Neurologic: Denies behavioral changes, Denies confusion, Denies dizziness, Denies frequent falls, Denies loss of vision, Denies numbness and Denies weakness Psychiatric Psychiatric: Denies anxiety, Denies behavioral changes, Denies confusion, Denies depression, Denies homicidal ideation and Denies suicidal ideation Endocrine Endocrine: Denies fatigue, Denies flushing and Denies palpitations Hematologic/Lymphatic Hematologic/Lymphatic: Denies easy bruising Allergic/Immunologic Allergic/Immunologic: Denies urticaria, Denies throat swelling and Denies wheezing Patient History <Daniel Dumont PA-C - Last Filed: 05/29/24 13:20> Medical History Idiopathic urticaria Depression Anxiety GDM (gestational diabetes mellitus), class A1 IUD (intrauterine device) in place Pre-eclampsia Surgical History S/P primary low transverse History of cholecystectomy History of appendectomy [place] teeth extracted Family History Mother Hypertension Father Hypertension Grandfather Pancreatic cancer Social History marital status: number of children: 0 household members: spouse lives independently: Yes caregiver/support person: No housing: condominium pets and animals: Yes (2 cats, managing litter boxes) education level: college occupational status: employed current occupational exposures/hazards: No special vaibhav needs: No travel history: recent seatbelt use: always water heater temp set < 120 deg: Yes working smoke detector in home: Yes fire extinguisher in home: Yes carbon monox detector in home: Yes firearms in home: Yes firearms unloaded and locked: Yes do you feel safe at home: Yes Smoking Status: Never smoker second hand exposure: No alcohol intake: former substance use type: does not use during the past year weight has: remained stable well-balanced diet: about half the time daily servings fruits/ve-4 caffeine: Yes (1 cup coffee in AM) Type(s) of exercise: walking and weight lifting frequency: 5-6 times per week Smoking Status: Never smoker Exam <Daniel Dumont PA-C - Last Filed: 05/29/24 13:20> Narrative Exam Narrative: Const General:?cooperative, healthy appearing and comfortable HENVT Head:?normal to inspection Ears:?hearing grossly normal bilaterally Nose:?external nose normal Face and sinus:?normal facial exam and sinuses nontender Mouth:?oral mucosae normal Throat:?posterior oropharynx normal Eyes General:?appearance normal, both eyes and all related structures Neck Neck:?normal visual inspection and no lymphadenopathy noted Resp Effort & Inspection:?normal respiratory effort Auscultation:?clear to auscultation bilaterally. No wheezing Cardio Rate:?regular rate Rhythm:?regular rhythm Integumentary There is some residual hives visualized on the face. No lip swelling, tongue swelling, trouble breathing. Neuro General:?patient alert, patient awake and patient oriented x3 Initial Vital Signs Initial Vital Signs: Vital Signs Temperature 97.9 F 05/29/24 10:11 Pulse Rate 110 H 05/29/24 10:11 Respiratory Rate 18 05/29/24 10:11 Blood Pressure 150/98 H 05/29/24 10:11 Pulse Oximetry 98 05/29/24 10:11 Oxygen Delivery Method Room Air 05/29/24 10:11 <Iris Ibarra MD - Last Filed: 05/30/24 08:31> Initial Vital Signs Initial Vital Signs: Vital Signs Temperature 97.9 F 05/29/24 10:11 Pulse Rate 110 H 05/29/24 10:11 Respiratory Rate 18 05/29/24 10:11 Blood Pressure 150/98 H 05/29/24 10:11 Pulse Oximetry 98 05/29/24 10:11 Oxygen Delivery Method Room Air 05/29/24 10:11 Course <Daniel Dumont PA-C - Last Filed: 05/29/24 13:20> Vital Signs Vital signs: Vital Signs - 8 hr 05/29/24 10:11 05/29/24 12:57 Temperature 97.9 F Pulse Rate 110 H 86 Respiratory Rate 18 18 Blood Pressure 150/98 H 116/69 Pulse Oximetry 98 96 Oxygen Delivery Method Room Air Room Air <Iris Ibarra MD - Last Filed: 05/30/24 08:31> Vital Signs Vital signs: Vital Signs - 8 hr 05/29/24 10:11 05/29/24 12:57 Temperature 97.9 F Pulse Rate 110 H 86 Respiratory Rate 18 18 Blood Pressure 150/98 H 116/69 Pulse Oximetry 98 96 Oxygen Delivery Method Room Air Room Air MDM - Allergic Reaction <Daniel Dumont PA-C - Last Filed: 05/29/24 13:20> MDM Narrative Medical decision making narrative: 28-year-old female with past medical history depression, anxiety, preeclampsia, idiopathic urticaria presents to the ED with exacerbation of the you urticaria. History and physical exam are consistent with chronic idiopathic urticaria. Unclear etiology, although could include allergies, vasculitis versus other. Recommend patient continue her current regimen but add on 20 mg of Pepcid AC b.i.d.. Recommend also trialing Benadryl cream on affected areas. Recommend she follow-up with her administrative support technician for further evaluation and perhaps other possible treatments such as biologics. Recommend following up with allerg ist/coding assistant as soon as possible. Discussed signs and symptoms of anaphylaxis and the importance of calling 911 if she were to experience the symptoms. ED return precautions were discussed with patient. Patient verbalized understanding. Medical records reviewed: Yes Discharge Plan Departure Patient Disposition: Home Clinical Impression: Urticaria, Idiopathic urticaria Instructions: DI for Hives Activity Restrictions/Additional Instructions: You were evaluated in the ED today for hives. It is unclear why you are developing these hives. It is important for you to follow a daily regimen of medications to control/prevent flare-ups. You may take 10 mg of Zyrtec, 20 mg of Pepcid AC in the morning. You may also take 10 mg of Zyrtec and 20 mg of Pepcid AC in the evening. You may continue taking the hydroxyzine at night. You may apply Benadryl cream to affected areas. Please keep your skin well moisturized after showers/baths. Please follow-up with your administrative support technician as soon as possible for further evaluation and next steps in treatment, given that your hives are not sufficiently controlled. Please also follow-up with your tv production assistant as soon as possible. Call 911 and return to the ED if you have worsening symptoms, tongue swelling, throat swelling, trouble breathing. Prescriptions: No Action diclofenac sodium [Voltaren Arthritis Pain] 1 % gel 2 g topical QID Qty: 100 0RF Rx Instructions: apply to single elbow, wrist or hand; for hand includes palm/fingers/back of hand azelaic acid 15 % gel 1 applic topical BID hydroxyzine pamoate [Vistaril] 25 mg capsule 25 mg PO BEDTIME PRN (Reason: for anxiety ) Qty: 60 0RF fluoxetine 40 mg capsule 40 mg PO DAILY Qty: 90 3RF Referrals: Paula Murray MD [Primary Care Provider] - Stand Alone Forms: Patient Portal/API/Survey ED Sign-out <Iris Ibarra MD - Last Filed: 05/30/24 08:31> Cosign ED Attending Jazzy Attestation: I was immediately available in the department for consultation throughout this patient's visit. Iris Ibarra MD
== END 2024-05-29 12:57 | disposition home or self-care (01) ==
PROVIDERS: Emergency Provider Student in an Organized Health Care Education/Training Program; PCP Family Medicine
DX: L50.1 Idiopathic urticaria (principal); L50.9 Urticaria, unspecified
CPT/HCPCS: 99281